=== PATIENT | female | born 1995 | race Two or more races ===

== ENCOUNTER 2025-08-21 03:46 | Inpatient (IN) ==
[2025-08-21] MEDS ORDERED: LIDOCAINE 1% LOCAL 20 ML VIAL INFIL PRN (04:29)
[2025-08-21 05:06] LABS: Hematocrit (blood only) 40.0 % (37.0-47.0); Hemoglobin 13.7 g/dL (12.0-16.0); Mean Corpuscular Hemoglobin 30.0 pg (25.0-34.0); Mean Corpuscular Volume 87.5 fL (80.0-100.0); Platelet Count 246 K/uL (130-400); RDW Standard Deviation 47.1 fL (36.4-46.3); Red Blood Count 4.57 M/uL (4.20-5.40); White Blood Count 9.87 K/ul (4.8-10.8)
[2025-08-21] MEDS: LACTATED RINGER'S 1,000 ML IV PRN (05:07)
[2025-08-21] MEDS: BUPIVACAINE 0.25% PF 30 ML VIAL ONE (05:40)
[2025-08-21] MEDS: LIDOCAINE 2%/EPINEPHRINE 1:200,000 20 ML PF ONE (05:40)
[2025-08-21] MEDS: fentANYL 2 MCG/ML BUPIVacaine 0.125%-NSS 100ML BAG ONE ×2 (05:41→14:19)
--- NOTE | 2025-08-21 05:47 | Anesthesiology Consultation ---
Date of Service August 21, 2025 Assessment & Plan Chart Review Chart Review: Acceptable Risk for Labor Epidural Consults Requested none History Height/Weight Height: 5 ft 5 in Weight: 66.361 kg Allergies Allergy/AdvReac Type Severity Reaction Status Date / Time No Known Allergies Allergy Verified 08/21/25 04:00 Medications Home Medications Medication Instructions Recorded Confirmed Last Taken prenat.vits,martin,[id number] tab PO 01/30/25 08/19/25 Unknown docusate sodium [Colace] PO 03/06/25 08/19/25 Unknown breast pump #1 ea 05/22/25 08/19/25 Unknown ferrous sulfate 325 mg (65 mg 325 mg PO DAILY 06/09/25 08/19/25 Unknown iron) tablet (FeroSul) acetone (urine) test (Ketone Urine #50 ea 06/20/25 08/19/25 Unknown Test strips) blood sugar diagnostic (Accu-Chek #150 ea 06/20/25 08/19/25 Unknown Guide test strips) blood-glucose meter (Accu-Chek #1 ea 06/20/25 08/19/25 Unknown Guide Glucose Meter) lancets (Accu-Chek Softclix #150 ea 06/20/25 08/19/25 Unknown Lancets) Active Medications Generic Name Dose Route Start Last Admin Trade Name Aneudyq PRN Reason Stop Dose Admin Lactated Ringer's 1,000 mls @ 125 mls/hr 08/21/25 04:29 08/21/25 05:07 Lr IV 08/23/25 04:28 999 mls/hr .Q8H PRN Administration L&D Protocol Protocol Past Family History Family History Father Heart disease Hypertension Diabetes Mother Hypertension Social History Smoking Status: Never smoker Do You Dip or Chew Tobacco: No Hx Alcohol Use: No Hx Substance Use: No Physical Exam Vital Signs Last Vital Signs Temp 37.0 C 08/21/25 04:05 Pulse 81 08/21/25 05:45 Resp 20 08/21/25 04:05 BP 116/71 08/21/25 05:45 Pulse Ox 98 08/21/25 05:41 Testing Laboratory Results 08/21/25 04:46 08/21/25 04:35 POC Glucose 99
[2025-08-21] MEDS: SODIUM CHLORIDE 0.9% PF INJ 10 ML VIAL ONE (05:57)
--- NOTE | 2025-08-21 07:55 | History & Physical Report ---
Date of Service August 21, 2025 Assessment & Plan (1) Post-dates : Plan: Active labor GBS positive penicillin started requested epidural continue to follow carefully Admission and Anticipated Discharge Date Admission Date: August 21, 2025 History of Present Illness Primary Care Provider: NO PCP Visit TEO Calculator Estimated Delivery Date Method Current WG Current Estimate 08/15/25 Ultrasound #1 40w 4d Other Estimates 08/22/25 LMP (Certain) 39w 4d LMP: 11/15/24 : 1 Full term: 0 Premature: 0 Total Number of Induced Abortions: 0 Total Number of Spontaneous Abortions: 0 Ectopics: 0 Multiple births: 0 Number of Living Children: 0 and Delivery Plans Famhx of Congenital Heart Defect * echo -w - pt declines *update - pt's sister's 's family has cardiac defects, thought to be related to his lineage, not sister's GDM wk glucola *Begin monthly Growth US's Allergies Allergy/AdvReac Type Severity Reaction Status Date / Time No Known Allergies Allergy Verified 08/21/25 04:00 Home Medications Medication Instructions Recorded Confirmed Type prenat.vits,martin,[id number] tab PO 01/30/25 08/19/25 History docusate sodium [Colace] PO 03/06/25 08/19/25 History breast pump #1 ea 05/22/25 08/19/25 Rx ferrous sulfate 325 mg (65 mg 325 mg PO DAILY 06/09/25 08/19/25 History iron) tablet (FeroSul) acetone (urine) test (Ketone Urine #50 ea 06/20/25 08/19/25 Rx Test strips) blood sugar diagnostic (Accu-Chek #150 ea 06/20/25 08/19/25 Rx Guide test strips) blood-glucose meter (Accu-Chek #1 ea 06/20/25 08/19/25 Rx Guide Glucose Meter) lancets (Accu-Chek Softclix #150 ea 06/20/25 08/19/25 Rx Lancets) Patient History Family History Father Heart disease Hypertension Diabetes Mother Hypertension Social History Smoking Status: Never smoker Second Hand Exposure: No; Do You Dip or Chew Tobacco: No; Hx Alcohol Use: No Hx Substance Use: No Preferred Language: Welsh Hose Inspector Required: No Beliefs That Will Affect Care: None marital status: marital status details: Sister: Krzysztof [phone] Current Living Situation: Spouse Current Living Situation Comment: lives with spouse current occupational status: employed current occupation: patient access at [employer] Other Information That Helps Us Care for You: No Feels Safe at Home: Yes Safety Concerns: Feels Safe At This Time Assistive Devices: None Physical Exam Constitutional: WD/WN, vitals as above well developed and well nourished Respiratory: normal respiratory effort, lungs clear to auscultation normal respiratory effort Cardiovascular: RRR, no murmur, no edema Gastrointestinal (Abdomen): normal bowel sounds, soft, nontender, no hepatosplenomegaly Results & Data Vital Signs (Past 12 Hours) Vital Signs Temp Pulse Resp BP Pulse Ox 08/21/25 07:51 76 98 08/21/25 07:46 73 98 08/21/25 07:41 99 08/21/25 07:41 84 08/21/25 07:41 82 108/66 08/21/25 07:36 76 97 08/21/25 07:31 79 98 08/21/25 07:26 80 98 08/21/25 07:25 77 113/73 08/21/25 07:21 75 98 08/21/25 07:16 83 99 08/21/25 07:11 93 H 99 08/21/25 07:10 91 H 110/72 08/21/25 07:06 83 99 08/21/25 07:01 88 99 08/21/25 07:00 90 117/74 08/21/25 06:56 87 100 08/21/25 06:54 97.5 F L 77 20 115/74 08/21/25 06:51 94 H 99 08/21/25 06:46 86 106/67 100 08/21/25 06:42 93 H 99/60 L 08/21/25 06:41 89 98 08/21/25 06:36 100 08/21/25 06:36 79 08/21/25 06:36 90 95/57 L 08/21/25 06:35 96 H 89 L 08/21/25 06:31 100 08/21/25 06:31 88 08/21/25 06:31 97 H 119/75 08/21/25 06:29 91 H 93 08/21/25 06:26 100 H 132/84 98 08/21/25 06:22 88 107/69 08/21/25 06:21 100 08/21/25 06:21 100 H 08/21/25 06:21 90 89/51 L 86 L 08/21/25 06:16 86 111/71 99 08/21/25 06:12 100 H 104/59 L 08/21/25 06:11 93 H 98 08/21/25 06:06 89 98 08/21/25 06:05 83 112/70 08/21/25 06:01 99 08/21/25 06:01 96 H 08/21/25 06:01 94 H 109/68 08/21/25 05:56 102 H 98 08/21/25 05:55 94 H 108/64 08/21/25 05:51 93 H 108/74 98 08/21/25 05:50 121 H 98/66 L 08/21/25 05:46 93 H 98 08/21/25 05:45 81 116/71 08/21/25 05:43 85 109/69 08/21/25 05:41 84 114/72 98 08/21/25 05:40 81 118/74 08/21/25 05:36 89 99 08/21/25 05:35 92 H 104/62 08/21/25 05:33 81 112/72 08/21/25 05:31 94 H 95 08/21/25 05:26 95 H 99 08/21/25 05:21 104 H 100 08/21/25 05:16 85 98 08/21/25 05:11 79 99 08/21/25 04:09 91 H 113/72 08/21/25 04:05 98.6 F 20 Coding Level of Care Code None Diagnoses Post-dates O48.0
--- NOTE | 2025-08-21 09:11 | Labor Progress Brief Note ---
Date of Service August 21, 2025 Subjective Comfortable with epidural. FHT Cat 1 [place] Q 2-6 SVE 7/100/0 AROM thin mec staining. Will monitor ctx, if does not improve to better contraction pattern, she is agreeable with pitocin. Assessment & Plan Admission and Anticipated Discharge Date Admission Date: August 21, 2025 Results & Data Vital Signs (Past 12 Hours) Vital Signs Temp Pulse Resp BP Pulse Ox 08/21/25 09:06 93 H 98 08/21/25 09:01 84 98 08/21/25 08:56 87 99 08/21/25 08:55 78 108/67 08/21/25 08:51 81 97 08/21/25 08:46 70 97 08/21/25 08:41 97 08/21/25 08:41 75 08/21/25 08:41 82 109/75 08/21/25 08:36 91 H 98 08/21/25 08:31 79 97 08/21/25 08:26 74 98 08/21/25 08:24 89 104/64 08/21/25 08:21 82 97 08/21/25 08:16 79 97 08/21/25 08:11 74 97 08/21/25 08:09 90 105/65 08/21/25 08:06 77 98 08/21/25 08:01 71 98 08/21/25 07:56 78 99 08/21/25 07:55 83 115/64 08/21/25 07:51 76 98 08/21/25 07:46 73 98 08/21/25 07:41 99 08/21/25 07:41 84 08/21/25 07:41 82 108/66 08/21/25 07:36 76 97 08/21/25 07:31 79 98 08/21/25 07:26 80 98 08/21/25 07:25 77 113/73 08/21/25 07:21 75 98 08/21/25 07:16 83 99 08/21/25 07:11 93 H 99 08/21/25 07:10 91 H 110/72 08/21/25 07:06 83 99 08/21/25 07:01 88 99 08/21/25 07:00 90 117/74 08/21/25 06:56 87 100 08/21/25 06:54 36.4 C L 77 20 115/74 08/21/25 06:51 94 H 99 08/21/25 06:46 86 106/67 100 08/21/25 06:42 93 H 99/60 L 08/21/25 06:41 89 98 08/21/25 06:36 100 08/21/25 06:36 79 08/21/25 06:36 90 95/57 L 08/21/25 06:35 96 H 89 L 08/21/25 06:31 100 08/21/25 06:31 88 08/21/25 06:31 97 H 119/75 08/21/25 06:29 91 H 93 08/21/25 06:26 100 H 132/84 98 08/21/25 06:22 88 107/69 08/21/25 06:21 100 08/21/25 06:21 100 H 08/21/25 06:21 90 89/51 L 86 L 08/21/25 06:16 86 111/71 99 08/21/25 06:12 100 H 104/59 L 08/21/25 06:11 93 H 98 08/21/25 06:06 89 98 08/21/25 06:05 83 112/70 08/21/25 06:01 99 08/21/25 06:01 96 H 08/21/25 06:01 94 H 109/68 08/21/25 05:56 102 H 98 08/21/25 05:55 94 H 108/64 08/21/25 05:51 93 H 108/74 98 08/21/25 05:50 121 H 98/66 L 08/21/25 05:46 93 H 98 08/21/25 05:45 81 116/71 08/21/25 05:43 85 109/69 08/21/25 05:41 84 114/72 98 08/21/25 05:40 81 118/74 08/21/25 05:36 89 99 08/21/25 05:35 92 H 104/62 08/21/25 05:33 81 112/72 08/21/25 05:31 94 H 95 08/21/25 05:26 95 H 99 08/21/25 05:21 104 H 100 08/21/25 05:16 85 98 08/21/25 05:11 79 99 08/21/25 04:09 91 H 113/72 08/21/25 04:05 37.0 C 20 Coding Level of Care Code None
--- NOTE | 2025-08-21 14:40 | Labor Progress Brief Note ---
Date of Service August 21, 2025 Subjective Actively pushing. FHT Cat 1 [place] Q 2-3 head 3+ station. Continue pushing, anticipate . Assessment & Plan Admission and Anticipated Discharge Date Admission Date: August 21, 2025 Results & Data Vital Signs (Past 12 Hours) Vital Signs Temp Pulse Resp BP Pulse Ox 08/21/25 14:36 100 08/21/25 14:36 89 08/21/25 14:36 114 H 84 L 08/21/25 14:31 118 H 100 08/21/25 14:28 106 H 85 L 08/21/25 14:26 89 100 08/21/25 14:25 88 116/72 08/21/25 14:23 114 H 92 08/21/25 14:21 103 H 100 08/21/25 14:16 89 100 08/21/25 14:11 108 H 102/65 100 08/21/25 14:06 101 H 100 08/21/25 14:01 96 H 100 08/21/25 13:56 94 H 99 08/21/25 13:55 92 H 97/56 L 08/21/25 13:51 85 99 08/21/25 13:46 95 H 100 08/21/25 13:41 97 H 100 08/21/25 13:40 92 H 103/59 L 08/21/25 13:36 109 H 100 08/21/25 13:31 88 99 08/21/25 13:26 83 99 08/21/25 13:25 84 108/63 08/21/25 13:21 91 H 99 08/21/25 13:16 85 97 08/21/25 13:11 98 08/21/25 13:11 81 08/21/25 13:11 81 122/77 08/21/25 13:06 88 99 08/21/25 13:01 90 99 08/21/25 12:56 98 08/21/25 12:56 76 08/21/25 12:56 86 122/78 08/21/25 12:51 82 98 08/21/25 12:46 83 99 08/21/25 12:41 89 98 08/21/25 12:40 82 118/77 08/21/25 12:36 86 98 08/21/25 12:31 88 99 08/21/25 12:26 83 99 08/21/25 12:25 83 117/75 08/21/25 12:21 90 99 08/21/25 12:16 86 99 08/21/25 12:11 87 98 08/21/25 12:09 85 111/73 08/21/25 12:06 75 98 08/21/25 12:01 93 H 98 08/21/25 11:56 94 H 99 08/21/25 11:55 36.6 C 74 20 107/65 08/21/25 11:51 80 98 08/21/25 11:46 70 97 08/21/25 11:41 69 97 08/21/25 11:39 68 103/60 08/21/25 11:36 66 97 08/21/25 11:31 74 97 08/21/25 11:26 97 08/21/25 11:26 77 08/21/25 11:26 65 101/56 L 08/21/25 11:21 71 98 08/21/25 11:16 68 97 08/21/25 11:11 70 97 08/21/25 11:09 85 98/56 L 08/21/25 11:06 85 97 08/21/25 11:01 69 97 08/21/25 10:56 87 97 08/21/25 10:55 80 110/65 08/21/25 10:51 87 98 08/21/25 10:46 86 96 08/21/25 10:41 88 99 08/21/25 10:40 75 101/64 08/21/25 10:36 77 98 08/21/25 10:31 77 96 08/21/25 10:26 76 97 08/21/25 10:25 86 107/66 08/21/25 10:21 87 98 08/21/25 10:16 84 98 08/21/25 10:11 83 116/69 98 08/21/25 10:06 88 97 08/21/25 10:01 84 99 08/21/25 09:56 79 98 08/21/25 09:55 73 116/71 08/21/25 09:51 96 H 98 08/21/25 09:46 90 98 08/21/25 09:41 87 98 08/21/25 09:40 76 106/66 08/21/25 09:36 81 98 08/21/25 09:31 84 98 08/21/25 09:26 98 08/21/25 09:26 88 08/21/25 09:26 85 108/72 08/21/25 09:21 83 98 08/21/25 09:16 93 H 97 08/21/25 09:11 87 98 08/21/25 09:10 90 08/21/25 09:10 92 H 113/60 93 08/21/25 09:06 93 H 98 08/21/25 09:01 84 98 08/21/25 08:56 87 99 08/21/25 08:55 78 108/67 08/21/25 08:51 81 97 08/21/25 08:46 70 97 08/21/25 08:41 97 08/21/25 08:41 75 08/21/25 08:41 82 109/75 08/21/25 08:36 91 H 98 08/21/25 08:31 79 97 08/21/25 08:26 74 98 08/21/25 08:24 89 104/64 08/21/25 08:21 82 97 08/21/25 08:16 79 97 08/21/25 08:11 74 97 08/21/25 08:09 90 105/65 08/21/25 08:06 77 98 08/21/25 08:01 71 98 08/21/25 07:56 78 99 08/21/25 07:55 83 115/64 08/21/25 07:51 76 98 08/21/25 07:46 73 98 08/21/25 07:41 99 08/21/25 07:41 84 08/21/25 07:41 82 108/66 08/21/25 07:36 76 97 08/21/25 07:31 79 98 08/21/25 07:26 80 98 08/21/25 07:25 77 113/73 08/21/25 07:21 75 98 08/21/25 07:16 83 99 08/21/25 07:11 93 H 99 08/21/25 07:10 91 H 110/72 08/21/25 07:06 83 99 08/21/25 07:01 88 99 08/21/25 07:00 90 117/74 08/21/25 06:56 87 100 08/21/25 06:54 36.4 C L 77 20 115/74 08/21/25 06:51 94 H 99 08/21/25 06:46 86 106/67 100 08/21/25 06:42 93 H 99/60 L 08/21/25 06:41 89 98 08/21/25 06:36 100 08/21/25 06:36 79 08/21/25 06:36 90 95/57 L 08/21/25 06:35 96 H 89 L 08/21/25 06:31 100 08/21/25 06:31 88 08/21/25 06:31 97 H 119/75 08/21/25 06:29 91 H 93 08/21/25 06:26 100 H 132/84 98 08/21/25 06:22 88 107/69 08/21/25 06:21 100 08/21/25 06:21 100 H 08/21/25 06:21 90 89/51 L 86 L 08/21/25 06:16 86 111/71 99 08/21/25 06:12 100 H 104/59 L 08/21/25 06:11 93 H 98 08/21/25 06:06 89 98 08/21/25 06:05 83 112/70 08/21/25 06:01 99 08/21/25 06:01 96 H 08/21/25 06:01 94 H 109/68 08/21/25 05:56 102 H 98 08/21/25 05:55 94 H 108/64 08/21/25 05:51 93 H 108/74 98 08/21/25 05:50 121 H 98/66 L 08/21/25 05:46 93 H 98 08/21/25 05:45 81 116/71 08/21/25 05:43 85 109/69 08/21/25 05:41 84 114/72 98 08/21/25 05:40 81 118/74 08/21/25 05:36 89 99 08/21/25 05:35 92 H 104/62 08/21/25 05:33 81 112/72 08/21/25 05:31 94 H 95 08/21/25 05:26 95 H 99 08/21/25 05:21 104 H 100 08/21/25 05:16 85 98 08/21/25 05:11 79 99 08/21/25 04:09 91 H 113/72 08/21/25 04:05 37.0 C 20 Coding Level of Care Code None
[2025-08-21] MEDS: OXYTOCIN 30 UNITS/NSS 30 UNITS/500 ML BAG IV PRN (15:11)
--- NOTE | 2025-08-21 15:37 | Delivery Summary ---
Vaginal Delivery Summary Date of Service August 21, 2025 Vaginal Delivery Summary and 2nd Degree LAC Vaginal Delivery Summary: Pre-delivery diagnoses: 30yo @ 40 6/7, spontaneous labor, [id number] Post-delivery diagnoses: same Procedure: spontaneous vaginal delivery Surgeon: Mallory Riggs DO Complications: none Findings: Viable male . Apgars: 8/9 . Weight pending, please see nursery records Estimated QBL: 238cc Description of delivery: The patient progressed to complete with epidural anesthesia. She then began to push. She spontaneously vaginally delivered a viable from the cephalic presentation. The head delivered in ANY position. The anterior shoulder delivered, followed by the posterior shoulder, followed by the body. The baby was placed on mother's abdomen and a spontaneous cry was heard. Delayed cord clamping was employed, and the cord was doubly clamped and cut. Cord blood was obtained. The placenta was delivered spontaneously intact with a 3-vessel cord. The uterus and vagina were swept of clots and debris. IV pitocin was given. The uterus became firm. The cervix, vagina, and perineum were inspected. 2nd degree perineal laceration noted, repaired with 3-0 Vicryl in standard fashion. Excellent hemostasis was observed. The mother and baby are recovering in stable and good condition in the room. Sponge, needle and instrument counts were correct x 2. Mallory Riggs DO [facility] Vaginal Delivery Charge Vaginal Delivery Codes: 94079 global code for the antepartum, delivery, and post- Delivery Type Details: and 2nd Degree LAC
--- NOTE | 2025-08-21 16:14 | Obstetrical Progress Note ---
Date of Service August 21, 2025 Assessment & Plan Admission and Anticipated Discharge Date Admission Date: August 21, 2025 Subjective Called to room, patient shivering, feeling dizzy. Similar to episode that she reportedly had this morning when getting epidural. Briefly tachycardic, HR then returned to 90s. BP briefly elevated, then returned to 130s/80s. Uterine fundus firm, small clot expressed, weighed blood loss since delivery (238 at delivery, plus newly weighed pads 70) for total QBL of 308 at this time. Patient awake, talking, appropriately answering questions. No obvious bleeding from vagina, abdomen soft, fundus firm, vitals stable. Will obtain labs at this time. Results & Data Vital Signs (Past 12 Hours) Vital Signs Temp Pulse Resp BP Pulse Ox 08/21/25 16:08 96 H 99 08/21/25 16:04 116 H 135/84 08/21/25 16:03 102 H 98 08/21/25 15:59 103 H 126/82 08/21/25 15:58 104 H 100 08/21/25 15:53 115 H 145/85 H 100 08/21/25 15:51 139 H 169/101 H 08/21/25 15:45 100 H 126/62 08/21/25 15:10 96 H 128/75 08/21/25 15:06 142 H 100 08/21/25 15:01 115 H 99 08/21/25 14:56 100 08/21/25 14:56 108 H 08/21/25 14:56 96 H 90 08/21/25 14:55 101 H 117/67 08/21/25 14:51 93 H 98 08/21/25 14:49 112 H 87 L 08/21/25 14:46 97 H 100 08/21/25 14:45 20 08/21/25 14:45 36.5 C 20 08/21/25 14:41 100 08/21/25 14:41 92 H 08/21/25 14:41 93 H 84 L 08/21/25 14:36 100 08/21/25 14:36 89 08/21/25 14:36 114 H 84 L 08/21/25 14:31 118 H 100 08/21/25 14:28 106 H 85 L 08/21/25 14:26 89 100 08/21/25 14:25 88 116/72 08/21/25 14:23 114 H 92 08/21/25 14:21 103 H 100 08/21/25 14:16 89 100 08/21/25 14:11 108 H 102/65 100 08/21/25 14:06 101 H 100 08/21/25 14:01 96 H 100 08/21/25 13:56 94 H 99 08/21/25 13:55 92 H 97/56 L 08/21/25 13:51 85 99 08/21/25 13:46 95 H 100 08/21/25 13:41 97 H 100 08/21/25 13:40 92 H 103/59 L 08/21/25 13:36 109 H 100 08/21/25 13:31 88 99 08/21/25 13:26 83 99 08/21/25 13:25 84 108/63 08/21/25 13:21 91 H 99 08/21/25 13:16 85 97 08/21/25 13:11 98 08/21/25 13:11 81 08/21/25 13:11 81 122/77 08/21/25 13:06 88 99 08/21/25 13:01 90 99 08/21/25 12:56 98 08/21/25 12:56 76 08/21/25 12:56 86 122/78 08/21/25 12:51 82 98 08/21/25 12:46 83 99 08/21/25 12:41 89 98 08/21/25 12:40 82 118/77 08/21/25 12:36 86 98 08/21/25 12:31 88 99 08/21/25 12:26 83 99 08/21/25 12:25 83 117/75 08/21/25 12:21 90 99 08/21/25 12:16 86 99 08/21/25 12:11 87 98 08/21/25 12:09 85 111/73 08/21/25 12:06 75 98 08/21/25 12:01 93 H 98 08/21/25 11:56 94 H 99 08/21/25 11:55 36.6 C 74 20 107/65 08/21/25 11:51 80 98 08/21/25 11:46 70 97 08/21/25 11:41 69 97 08/21/25 11:39 68 103/60 08/21/25 11:36 66 97 08/21/25 11:31 74 97 08/21/25 11:26 97 08/21/25 11:26 77 08/21/25 11:26 65 101/56 L 08/21/25 11:21 71 98 08/21/25 11:16 68 97 08/21/25 11:11 70 97 08/21/25 11:09 85 98/56 L 08/21/25 11:06 85 97 08/21/25 11:01 69 97 08/21/25 10:56 87 97 08/21/25 10:55 80 110/65 08/21/25 10:51 87 98 08/21/25 10:46 86 96 08/21/25 10:41 88 99 08/21/25 10:40 75 101/64 08/21/25 10:36 77 98 08/21/25 10:31 77 96 08/21/25 10:26 76 97 08/21/25 10:25 86 107/66 08/21/25 10:21 87 98 08/21/25 10:16 84 98 08/21/25 10:11 83 116/69 98 08/21/25 10:06 88 97 08/21/25 10:01 84 99 08/21/25 09:56 79 98 08/21/25 09:55 73 116/71 08/21/25 09:51 96 H 98 08/21/25 09:46 90 98 08/21/25 09:41 87 98 08/21/25 09:40 76 106/66 08/21/25 09:36 81 98 08/21/25 09:31 84 98 08/21/25 09:26 98 08/21/25 09:26 88 08/21/25 09:26 85 108/72 08/21/25 09:21 83 98 08/21/25 09:16 93 H 97 08/21/25 09:11 87 98 08/21/25 09:10 90 08/21/25 09:10 92 H 113/60 93 08/21/25 09:06 93 H 98 08/21/25 09:01 84 98 08/21/25 08:56 87 99 08/21/25 08:55 78 108/67 08/21/25 08:51 81 97 08/21/25 08:46 70 97 08/21/25 08:41 97 08/21/25 08:41 75 08/21/25 08:41 82 109/75 08/21/25 08:36 91 H 98 08/21/25 08:31 79 97 08/21/25 08:26 74 98 08/21/25 08:24 89 104/64 08/21/25 08:21 82 97 08/21/25 08:16 79 97 08/21/25 08:11 74 97 08/21/25 08:09 90 105/65 08/21/25 08:06 77 98 08/21/25 08:01 71 98 08/21/25 07:56 78 99 08/21/25 07:55 83 115/64 08/21/25 07:51 76 98 08/21/25 07:46 73 98 08/21/25 07:41 99 08/21/25 07:41 84 08/21/25 07:41 82 108/66 08/21/25 07:36 76 97 08/21/25 07:31 79 98 08/21/25 07:26 80 98 08/21/25 07:25 77 113/73 08/21/25 07:21 75 98 08/21/25 07:16 83 99 08/21/25 07:11 93 H 99 08/21/25 07:10 91 H 110/72 08/21/25 07:06 83 99 08/21/25 07:01 88 99 08/21/25 07:00 90 117/74 08/21/25 06:56 87 100 08/21/25 06:54 36.4 C L 77 20 115/74 08/21/25 06:51 94 H 99 08/21/25 06:46 86 106/67 100 08/21/25 06:42 93 H 99/60 L 08/21/25 06:41 89 98 08/21/25 06:36 100 08/21/25 06:36 79 08/21/25 06:36 90 95/57 L 08/21/25 06:35 96 H 89 L 08/21/25 06:31 100 08/21/25 06:31 88 08/21/25 06:31 97 H 119/75 08/21/25 06:29 91 H 93 08/21/25 06:26 100 H 132/84 98 08/21/25 06:22 88 107/69 08/21/25 06:21 100 08/21/25 06:21 100 H 08/21/25 06:21 90 89/51 L 86 L 08/21/25 06:16 86 111/71 99 08/21/25 06:12 100 H 104/59 L 08/21/25 06:11 93 H 98 08/21/25 06:06 89 98 08/21/25 06:05 83 112/70 08/21/25 06:01 99 08/21/25 06:01 96 H 08/21/25 06:01 94 H 109/68 08/21/25 05:56 102 H 98 08/21/25 05:55 94 H 108/64 08/21/25 05:51 93 H 108/74 98 08/21/25 05:50 121 H 98/66 L 08/21/25 05:46 93 H 98 08/21/25 05:45 81 116/71 08/21/25 05:43 85 109/69 08/21/25 05:41 84 114/72 98 08/21/25 05:40 81 118/74 08/21/25 05:36 89 99 08/21/25 05:35 92 H 104/62 08/21/25 05:33 81 112/72 08/21/25 05:31 94 H 95 08/21/25 05:26 95 H 99 08/21/25 05:21 104 H 100 08/21/25 05:16 85 98 08/21/25 05:11 79 99 PG Care Time/CCT Total # of Minutes Spent Total Time Spent with Patient: Total time spent is greater than 50% in coordination of care (as documented) at patient's floor/unit and/or counseling patient: Coding Level of Care Code None
[2025-08-21] MEDS ORDERED: OXYTOCIN 30 UNITS/NSS 30 UNITS/500 ML BAG IV PRN (16:32)
[2025-08-21] MEDS ORDERED: HYDROCORTISONE ACETATE 25 MG SUPP PR PRN (16:32)
[2025-08-21 16:33] LABS: Hematocrit (blood only) 42.3 % (37.0-47.0); Hemoglobin 14.2 g/dL (12.0-16.0); Mean Corpuscular Hemoglobin 29.6 pg (25.0-34.0); Mean Corpuscular Volume 88.1 fL (80.0-100.0); Platelet Count 219 K/uL (130-400); RDW Standard Deviation 47.8 fL (36.4-46.3); Red Blood Count 4.80 M/uL (4.20-5.40); White Blood Count 15.10 K/ul (4.8-10.8)
--- NOTE | 2025-08-21 16:35 | Anesthesia Procedure Note ---
Date of Service August 21, 2025 Anesthesia Post Epidural Note Vital Signs Vital Signs: Temp Pulse Resp BP Pulse Ox 36.5 C 97 H 20 128/72 100 08/21/25 14:45 08/21/25 16:33 08/21/25 14:45 08/21/25 16:19 08/21/25 16:33 Notes Mental Status: alert / awake / arousable Nausea / Vomiting: adequately controlled Pain: adequately controlled Airway Patency, RR, SpO2: stable & adequate BP & HR: stable & adequate Hydration State: stable & adequate Neuraxial Anesthesia: was administered and sensory block is resolving Anesthetic Complications: no major complications apparent Epidural: Removed without complications and With tip intact
[2025-08-21 16:39] LABS: Fibrinogen 428 mg/dl (184-400)
[2025-08-21 16:41] LABS: INR 1.0 (0.9-1.1); Partial Thromboplastin Time 26 Seconds (21-31); Prothrombin Time 10.3 Seconds (9.0-12.0)
[2025-08-21 16:51] LABS: Alanine Aminotransferase 20.0 U/L (7-52); Albumin Globulin Ratio 1.0 (0.9-2); Albumin Level 2.9 gm/dl (3.4-5.0); Alkaline Phosphatase 185.0 U/L (34-104); Anion Gap 7.0 (3-11); Bilirubin,Total 0.4 mg/dl (0.2-1.0); Blood Urea Nitrogen 7.0 mg/dl (6-23); Calcium 8.4 mg/dl (8.6-10.3); Carbon Dioxide 22.0 mmol/L (21-32); Chloride 105.0 mmol/L (98-107); Creatinine Clr Calc Pharmacy 153.8 ml/min; Globulin 2.8 gm/dl (2.5-4.0); Glucose 110.0 mg/dl (70-99(Fasting)); Potassium 3.7 mmol/L (3.5-5.1); Sodium 134.0 mmol/L (136-145); Total Protein 5.7 gm/dl (6.0-8.3)
[2025-08-21] MEDS: DIPHTHER/TETAN/PERTUS Vaccine (Tdap, Adol/Adult) 0.5mL IM ONE (17:40)
[2025-08-21] MEDS: BENZOCAINE 20% SPRY 85 APPLN/85 GM CAN EXT PRN (22:00)
[2025-08-21] MEDS: DOCUSATE SODIUM 100 MG CAP PO SCH (22:06)
[2025-08-21] MEDS: IBUPROFEN 600 MG TAB PO PRN (22:33)
[2025-08-22 07:13] LABS: Hematocrit (blood only) 33.9 % (37.0-47.0); Hemoglobin 11.3 g/dL (12.0-16.0)
--- NOTE | 2025-08-22 07:23 | Obstetrical Progress Note ---
Date of Service August 22, 2025 Assessment & Plan (1) Post-dates : (2) Gestational diabetes mellitus (GDM) affecting , antepartum: (3) Family history of congenital heart defect: (4) Normal vaginal delivery: Plan 30 yo post- day 1 s/p Fells well today. Vital signs stable Continue post- care Encourage ambulation and Pain controlled with ibuprofen Hgb stable Discharge home tomorrow, follow up with Dr. Riggs in 6 weeks. Admission and Anticipated Discharge Date Admission Date: August 21, 2025 Subjective 30 yo post- day 1 s/p Ambulation: ambulating normally Voiding: no voiding problems Passing Gas:: Yes Diet Tolerance:: regular diet Lochia:: Small Feeding Type:: breast feeding Current Pain Level:Slight pain. Resting comfortably this AM in NAD. Denies LEE, CP, SOB, N/V/D, LE pain/swelling. Review of Systems Review of Systems: As per HPI. Physical Exam Physical Exam: General: patient resting comfortably, NAD, non-toxic in appearance, AA&O x 4, answers questions appropriately. Skin: warm, dry, intact HEENT: NC/AT, anicteric sclera, conjunctiva without injection, moist mucus memb ranes. Heart: +S1/S2, regular, no m/r/g Lungs: equal air entry bilaterally, no rales/rhonchi/wheezes Abd: +BS, soft, NT/ND, uterine fundus firm at umbilicus. Ext: warm, no clubbing/cyanosis or edema, Jessee's neg. Results & Data Vital Signs (Past 12 Hours) Vital Signs Temp Pulse Pulse Resp BP BP Pulse Ox 08/22/25 04:45 36.6 C 108 H 16 96/67 L 98 08/22/25 00:00 36.7 C 86 16 92/57 L 97 08/21/25 20:49 105 H 105/61 08/21/25 20:40 08/21/25 20:40 36.8 C 101 H 16 109/70 97 08/21/25 20:34 111 H 106/62 08/21/25 20:19 110 H 116/68 08/21/25 20:04 120 H 113/67 08/21/25 19:49 108 H 114/68 08/21/25 19:34 115 H 113/67 O2 Del Method 08/22/25 04:45 Room Air 08/22/25 00:00 Room Air 08/21/25 20:49 08/21/25 20:40 Room Air 08/21/25 20:40 Room Air 08/21/25 20:34 08/21/25 20:19 08/21/25 20:04 08/21/25 19:49 08/21/25 19:34 Resident Activity Tracking Resident Involvement: Resident Care Provided Care Provided: Adult Hospital Medicine Resident Supervision Co-Signing Physician Notes Resident Physician Supervision Note: I interviewed and examined the patient. Discussed with Dr. De Leon and agree with findings and plan as documented in the note. Any exceptions or clarifications are listed here: PPD1 doing well. Documented By: Mallory Riggs, DO
[2025-08-22] MEDS: PRENATAL VITAMIN 1 TAB PO SCH (09:05)
[2025-08-22] MEDS: ACETAMINOPHEN 325 MG TAB PO PRN (11:31)
[2025-08-22] MEDS: POLYETHYLENE (MIRALAX) 17 GM PACK PO PRN (11:32)
[2025-08-23 05:12] VITALS: TEMP 98.1; O2SAT 98
--- NOTE | 2025-08-23 06:46 | Obstetrical Progress Note ---
Date of Service August 23, 2025 Assessment & Plan (1) Post-dates : (2) Gestational diabetes mellitus (GDM) affecting , antepartum: (3) Family history of congenital heart defect: (4) Normal vaginal delivery: Plan 30 yo post- day 2 s/p Fells well today. Vital signs stable Continue post- care Encourage ambulation and Pain controlled with ibuprofen Hgb stable Discharge home today, follow up with Dr. Riggs in 6 weeks. Admission and Anticipated Discharge Date Admission Date: August 21, 2025 Subjective 30 yo post- day 2 s/p Ambulation: ambulating normally Voiding: no voiding problems. Passing Gas:: Yes Diet Tolerance:: regular diet Lochia:: Small Feeding Type:: breast feeding Current Pain Level:Slight pain. Resting comfortably this AM in NAD. Denies LEE, CP, SOB, N/V/D, LE pain/swelling. Review of Systems Review of Systems: As per HPI. Physical Exam Physical Exam: General: patient resting comfortably, NAD, non-toxic in appearance, AA&O x 4, answers questions appropriately. Skin: warm, dry, intact HEENT: NC/AT, anicteric sclera, conjunctiva without injection, moist mucus membranes. Heart: +S1/S2, regular, no m/r/g Lungs: equal air entry bilaterally, no rales/rhonchi/wheezes Abd: +BS, soft, NT/ND, uterine fundus firm at umbilicus. Ext: warm, no clubbing/cyanosis or edema, Jessee's neg. Results & Data Vital Signs (Past 12 Hours) Vital Signs Temp Pulse Resp BP Pulse Ox O2 Del Method 08/23/25 05:00 36.7 C 71 18 110/73 98 Room Air 08/22/25 20:00 36.6 C 87 18 106/70 97 Room Air Resident Activity Tracking Resident Involvement: Resident Care Provided Care Provided: Adult Hospital Medicine
[2025-08-23 06:55] LABS: Hematocrit (blood only) 35.7 % (37.0-47.0); Hemoglobin 11.7 g/dL (12.0-16.0)
--- NOTE | 2025-08-23 08:51 | Obstetrical Progress Note ---
Date of Service August 23, 2025 Assessment & Plan (1) care and examination: Plan 30 yo post- day 2 s/p Fells well today. Vital signs stable Continue post- care Encourage ambulation and Pain controlled with ibuprofen Hgb stable Discharge home today, follow up with Dr. Riggs in 6 weeks. Admission and Anticipated Discharge Date Admission Date: August 21, 2025 Supervising Physician Co-Signing Physician Notes Resident Physician Supervision Note: I interviewed and examined the patient. Discussed with Dr. De Leon and agree with findings and plan as documented in the note. Any exceptions or clarifications are listed here: pt eating, ambulating without issue. breast feeding. no dizziness. no lightheadedness. hgb was rechecked due to such sx today and is stable at 11+. She is noting some spont loss of urine when standing and when at commode. This has been happening since yestserday and she says she did have bladder scan yesterday with normal findings and wondering if that is normal to lose urine. exam abd soft ff 2 down nt. ext nt calves. ppd#2 s/p , unclear if emptying well, discussed with nursing who was with her yesterday and bladder scan ultimately with 30cc residual. Pt also not voiding regularly ie. potentially letting bladder get overdistended. Rec recheck bladder scan before dc and if need farrell to go home--i did tell pt about this as possibility. Advise pt to void q2hr regularly to help bladder recover/prevent overdistention. dc home. instructions reviewed. 6wk check up recommended. She says she plans to go to her mom's house in [place] after 6wks with baby for at least 2m and asks if this is ok for her and baby. We will check on her at 6wks to advise on her status but she will have to discuss this with baby doctors as far as baby care. Documented By: Jojo Allan MD, FACOG Subjective 30 yo post- day 2 s/p Ambulation: ambulating normally Voiding: no voiding problems Passing Gas:: Yes Diet Tolerance:: regular diet Lochia:: Small Feeding Type:: breast feeding Current Pain Level:Slight pain. Resting comfortably this AM in NAD. Denies LEE, CP, SOB, N/V/D, LE pain/swelling. Review of Systems Review of Systems: As per HPI. Physical Exam Physical Exam: General: patient resting comfortably, NAD, non-toxic in appearance, AA&O x 4, answers questions appropriately. Skin: warm, dry, intact HEENT: NC/AT, anicteric sclera, conjunctiva without injection, moist mucus membranes. Heart: +S1/S2, regular, no m/r/g Lungs: equal air entry bilaterally, no rales/rhonchi/wheezes Abd: +BS, soft, NT/ND, uterine fundus firm at umbilicus. Ext: warm, no clubbing/cyanosis or edema, Jessee's neg. Results & Data Vital Signs (Past 12 Hours) Vital Signs Temp Pulse Resp BP Pulse Ox O2 Del Method 08/23/25 05:00 36.7 C 71 18 110/73 98 Room Air Resident Activity Tracking Resident Involvement: Resident Care Provided Care Provided: Adult Hospital Medicine
[2025-08-23 10:44] VITALS: BP 121/85; PULSE 78; RESP 16
== END 2025-08-23 15:30 | disposition home or self-care (01) | DRG 807 ==
LOC: OPB 03:46 → 4S1 03:51 → 4E2 21:38